=== PATIENT | female | born 1990 | race Caucasian/White ===

== ENCOUNTER 2020-04-18 09:15 | Emergency (ER) | payer BC ==
[~2020-04-18] VITALS: Ht 167.6 cm; Wt 66.7 kg
[~2020-04-18 09:15] MED LIST: AMIT-189 PO; ATEN-27 PO; BIRTH CONTOL PO; ZOLM5TAB9 PO
[2020-04-18 11:02] VITALS: BP 131/103
[2020-04-18 11:05] LABS: CLARITY,URINE CLOUDY (Clear); COLOR,URINE STRAW (Yellow); GLUCOSE, URINE NEGATIVE (Neg); KETONES,URINE NEGATIVE (Neg); LEUKOCYTE ESTERASE ,URINE NEGATIVE (Neg); NITRITES, URINE NEGATIVE (Neg); OCCULT BLOOD,URINE TRACE-INTACT (Neg); PROTEIN,URINE NEGATIVE (Neg); UA COLLECTION TYPE NON-SPECIFIED; UROBILINOGEN,URINE 0.2 E.U/dL (0.2-1.0)
[2020-04-18 11:07] LABS: URINE HCG NEGATIVE (NEG)
[2020-04-18] MEDS ORDERED: normal saline 1000ML IV soln IVB ONE (11:20)
[2020-04-18] MEDS ORDERED: ketorolac trometh. 30mg/ml inj. IV ONE (11:20)
[2020-04-18 11:21] LABS: BACTERIA,URINE 2+ /HPF (Neg); SQUAMOUS EPITHELIAL CELL,UR MANY /LPF (FEW); WBC,URINE 0-4 /HPF (0-4)
[2020-04-18 11:53] LABS: EOSINOPHILS % (AUTO) 0.7 % (0-6); HEMATOCRIT 41.5 % (35.0-45.0); HEMOGLOBIN 13.5 g/dl (12.0-16.0); LYMPHOCYTES % (AUTO) 24.7 % (21-51); MEAN CORPUSCULAR HEMOGLOBIN 30.7 PG (27.0-31.0); MEAN CORPUSCULAR HGB CONC 32.6 g/dL (33.0-36.5); MEAN CORPUSCULAR VOLUME 94.1 FL (78-98); MEAN PLATELET VOLUME 8.6 FL (7.4-10.4); MONOCYTES # (AUTO) 0.3 X10'3 (0-0.9); MONOCYTES % (AUTO) 7.3 % (2-12); NEUTROPHILS # (AUTO) 2.7 X10'3 (1.8-7.7); NEUTROPHILS % (AUTO) 66.3 % (42-75); PLATELET COUNT 264 X10'3 (140-440); RED BLOOD COUNT 4.41 X10'6 (4.20-5.60); RED CELL DISTRIBUTION WIDTH 13.4 % (11.5-14.5); WHITE BLOOD COUNT 4.1 X10'3 (4.5-11.0)
[2020-04-18 12:17] LABS: ALANINE AMINOTRANSFERASE 17 U/L (12-78); ALBUMIN 4.1 G/DL (3.4-5.0); ALBUMIN/GLOBULIN RATIO 1.1 (1.1-1.5); ALKALINE PHOSPHATASE 66 IU/L (46-116); ANION GAP 9 (8-16); ASPARTATE AMINO TRANSFERASE 13 U/L (10-37); BILIRUBIN,TOTAL 0.4 MG/DL (0.1-1.0); BLOOD UREA NITROGEN 6 MG/DL (7-18); BUN/CREATININE RATIO 8.8 (6.6-38.0); CALCIUM 9.2 MG/DL (8.5-10.1); CHLORIDE 106 MMOL/L (99-107); CREATININE 0.68 MG/DL (0.40-0.90); GLUCOSE 89 MG/DL (70-104); SODIUM 142 MMOL/L (135-145); TOTAL CARBON DIOXIDE 27.4 MMOL/L (24-32); TOTAL PROTEIN 7.9 G/DL (6.4-8.2); eGFR > 90 ML/MIN
== END 2020-04-18 12:53 | disposition home or self-care (01) ==
LOC: ER 09:15
DX: R10.32 Left lower quadrant pain (principal); Z79.899 Other long term (current) drug therapy
CPT/HCPCS: 36415; 76775; 80053; 81001; 81025; 85025; 96361; 96374; 99284; J1885; J7030